=== PATIENT | male | born 1945 | race Caucasian/White ===

== ENCOUNTER → 2016-11-27 | Outpatient (CLI) | payer OTHER ==
[~2016-11-27] MED LIST: ALBU18HF INH; ALBU8.5H5; ALPR-475 PO; AMLO10TA2 PO; APIX5TAB PO; ASPI-13 PO; AZIL80TA PO; FENO145T13 PO; FENO145T32 PO; FURO20TA3 PO; HYDROCODONE PO; LISI-468 PO; LISI40TA PO; LOVA40TA2 PO; LOVA40TA65 PO; OMEP-110 PO; OMEP20CA9 PO; OXYC-229 PO; PRED20TA; SERT50TA5 PO; SOTA120T26 PO; SOTA80TA18 PO
== END | disposition home or self-care (01) ==
LOC: CVU 13:47
PROVIDERS: ATTEND Nurse Practitioner Family
DX: I08.1 Rheumatic disorders of both mitral and tricuspid valves (principal); I10 Essential (primary) hypertension; E78.5 Hyperlipidemia, unspecified; Z95.0 Presence of cardiac pacemaker; Z87.891 Personal history of nicotine dependence
CPT/HCPCS: C8929